=== PATIENT | male | born 1980 | race Caucasian/White ===

== ENCOUNTER 2023-10-26 14:59 | Inpatient (IN) | payer SELFPAY ==
[~2023-10-26 14:59] MED LIST: Iopamidol-370 76% 500 ML MDV (1 ML CHARGE) ONE
[2023-10-26 15:16] LABS: #Basophils 0.06 10x3/uL (0.0-0.2); %Basophils 0.6 % (0.0-1.0); %Eosinophils 1.9 % (0.0-10.0); %Lymphocytes 21.9 % (21.0-51.0); %Monocytes 6.6 % (0.0-10.0); %Neutrophils 68.7 % (42.0-75.0); Hematocrit 43.7 % (42.0-52.0); Hemoglobin 15.1 g/dL (14.0-18.0); Mean Corpuscular HGB CONC 34.6 g/dL (32.0-36.0); Mean Corpuscular Volume 89.7 fL (78.0-98.0); Platelet Count 234 10x3/uL (130-400); RBC Distribution Width 12.4 % (11.5-14.5); Red Blood Cell (RBC) Count 4.87 mill/uL (4.70-6.10)
[2023-10-26 15:30] LABS: Prothrombin Time 12.5 sec (12.0-14.7)
[2023-10-26 15:31] LABS: PTT 28.5 sec (22.9-36.1)
[2023-10-26 15:33] LABS: ALT (SGPT) 20 U/L (8-55); AST (SGOT) 12 U/L (5-34); Albumin 3.9 g/dL (3.5-5.0); Alkaline Phosphatase 171 U/L (40-110); Anion Gap 13 mmol/L (10-20); BUN (Urea Nitrogen) 12 mg/dL (8.9-20.6); Bilirubin, Total 0.2 mg/dL (0.2-1.2); CK (CPK) 64 U/L (30-200); Calc. Creatinine Clearance 0 mL/min (70-130); Calcium 9.5 mg/dL (7.8-10.44); Carbon Dioxide 26 mmol/L (22-29); Chloride 99 mmol/L (98-107); Estimated GFR 95; Globulin 3.4 g/dL (2.4-3.5); Potassium 3.5 mmol/L (3.5-5.1); Protein, Total 7.3 g/dL (6.0-8.3); Sodium 134 mmol/L (136-145)
[2023-10-26 15:35] LABS: INR-International Normal Ratio 0.9
[2023-10-26 15:37] LABS: Troponin I 0.095 ng/mL (< 0.028)
[2023-10-26 15:42] LABS: Critical Call Chemistry NUR.CGM1 AT 1542; Glucose 411 mg/dL (70-105)
[2023-10-26] MEDS ORDERED: Insulin Regular 300 UNITS/3 ML VIAL ONE (15:43)
[2023-10-26] MEDS ORDERED: hydrALAZINE 20 MG/ML VIAL ONE (15:45)
[2023-10-26 15:58] LABS: Bacteria/HPF None Seen HPF (None Seen); Bilirubin Negative (Negative); Blood, Urine Trace (Negative); CAUTI Indications for Culture Pelvic or flank pain; Clarity Clear (Clear); Glucose, Urine (Dipstick) Greater than 1000 mg/dL (Negative); Ketone, Urine Negative (Negative); Leukocyte Negative Leu/uL (Negative); Nitrite Negative (Negative); Protein, Urine (Dipstick) 20 mg/dL (Neg-Trace); RBC/HPF 0-3 HPF (0-3); Specific Gravity, Urine 1.042 (1.002-1.036); Squamous Epithelial None Seen HPF (0-3); Urobilinogen Normal mg/dL (Less than 2); WBC/HPF 21-50 HPF (0-3)
[2023-10-26 16:01] LABS: Urine Culture Reflex Yes Yes
[2023-10-26] MEDS ORDERED: HYDROcodone/Acetaminophen 5/325 mg Tablet PO PRN (16:26)
[2023-10-26] MEDS ORDERED: Bisacodyl 10 MG SUPP PR PRN (16:26)
[2023-10-26] MEDS ORDERED: Ondansetron PF 4 MG/2 ML Vial IVP PRN (16:26)
[2023-10-26] MEDS ORDERED: Labetalol HCl 100 MG/20 ML VIAL SLOW IVP PRN (16:28)
[2023-10-26] MEDS ORDERED: hydrALAZINE 20 MG/ML VIAL SLOW IVP PRN (16:28)
[2023-10-26] MEDS ORDERED: Dextrose 5% in Water 1,000 ML IV PRN (16:29)
[2023-10-26] MEDS ORDERED: Dextrose 50% Abboject 50 ML SYRINGE SLOW IVP PRN (16:29)
[2023-10-26] MEDS ORDERED: Glucagon 1 MG/ML KIT IM PRN (16:29)
[2023-10-26] MEDS: HumaLOG 300 UNITS/3 ML VIAL SC PRN (18:48)
[2023-10-26] MEDS: Sodium Chloride 0.9% 1,000 ML IV SCH (18:49)
[2023-10-26 18:53] LABS: Troponin I 0.088 ng/mL (< 0.028)
[2023-10-26 19:00] VITALS: BMI 36.3
[2023-10-26] MEDS: Atorvastatin Calcium 40 MG TAB PO SCH (20:15)
[2023-10-26] MEDS: Insulin Glargine 30 UNITS/0.3 ML VIAL SC SCH (20:15)
[2023-10-26] MEDS: Famotidine 20 MG TAB PO SCH (20:15)
[2023-10-26 21:33] LABS: Troponin I 0.079 ng/mL (< 0.028)
[2023-10-27 04:56] LABS: #Basophils 0.06 10x3/uL (0.0-0.2); %Basophils 0.6 % (0.0-1.0); %Eosinophils 2.9 % (0.0-10.0); %Lymphocytes 20.3 % (21.0-51.0); %Monocytes 7.8 % (0.0-10.0); %Neutrophils 68.1 % (42.0-75.0); Hematocrit 41.8 % (42.0-52.0); Hemoglobin 14.3 g/dL (14.0-18.0); Mean Corpuscular HGB CONC 34.2 g/dL (32.0-36.0); Mean Corpuscular Hemoglobin 31.6 pg (27.0-31.0); Mean Corpuscular Volume 92.3 fL (78.0-98.0); Mean Platelet Volume 10.9 fL (7.4-10.4); Platelet Count 227 10x3/uL (130-400); RBC Distribution Width 12.9 % (11.5-14.5); Red Blood Cell (RBC) Count 4.53 mill/uL (4.70-6.10)
[2023-10-27 05:18] LABS: Hemoglobin A1c 13.6 % (4.0-6.0)
[2023-10-27 05:28] LABS: Anion Gap 14 mmol/L (10-20); Carbon Dioxide 23 mmol/L (22-29); Chloride 102 mmol/L (98-107); Potassium 3.8 mmol/L (3.5-5.1); Sodium 135 mmol/L (136-145)
[2023-10-27 05:29] LABS: BUN (Urea Nitrogen) 10 mg/dL (8.9-20.6); Calc. Creatinine Clearance 171 mL/min (70-130); Calcium 8.9 mg/dL (7.8-10.44); Cardiac Risk 5.6 (Less than 4.5); Cholesterol 239 mg/dl (< 200 Desired); Estimated GFR 113; Glucose 281 mg/dL (70-105); HDL Cholesterol 43 mg/dL (>60 Neg Risk); LDL Cholesterol, Calculated 156 mg/dL; Triglycerides 199 mg/dL (Less than 150)
[2023-10-27] MEDS ORDERED: Aspirin 81 mg Enteric Coated Tablet PO SCH (09:00)
[2023-10-27] MEDS ORDERED: INSULIN ASPART PROT SQ SCH (09:00)
[2023-10-27] MEDS ORDERED: [UNRECOGNIZED DRUG - OTHER] SQ SCH (09:00)
[2023-10-27] MEDS ORDERED: INSULN ASP SQ SCH (09:00)
[2023-10-27] MEDS: Verapamil 120 MG TAB PO SCH (12:16)
[2023-10-27] MEDS: Clopidogrel Bisulfate 75 MG TAB PO SCH (12:16)
[2023-10-27] MEDS: Aspirin 81 mg Enteric Coated Tablet PO SCH (12:16)
[2023-10-27] MEDS: Amlodipine 10 MG TAB PO SCH (12:16)
[2023-10-27] MEDS: HumuLIN 70/30 100 Unit/ml 10 ml Vial SC SCH (12:28)
[2023-10-27] MEDS: Acetaminophen 325 MG TAB PO PRN (19:09)
[2023-10-27] MEDS: Atorvastatin Calcium 40 MG TAB PO SCH (20:20)
[2023-10-27] MEDS ORDERED: Non-Formulary Item 1 EACH (Atorvastatin Calcium [Lipitor] 80 MG Tablet) PO SCH (21:00)
[2023-10-28 04:34] LABS: #Basophils 0.04 10x3/uL (0.0-0.2); %Basophils 0.4 % (0.0-1.0); %Eosinophils 3.9 % (0.0-10.0); %Lymphocytes 18.6 % (21.0-51.0); %Monocytes 8.3 % (0.0-10.0); %Neutrophils 68.6 % (42.0-75.0); Hematocrit 43.8 % (42.0-52.0); Hemoglobin 14.8 g/dL (14.0-18.0); Mean Corpuscular HGB CONC 33.8 g/dL (32.0-36.0); Mean Corpuscular Hemoglobin 30.5 pg (27.0-31.0); Mean Corpuscular Volume 90.1 fL (78.0-98.0); Mean Platelet Volume 11.3 fL (7.4-10.4); Platelet Count 258 10x3/uL (130-400); RBC Distribution Width 12.7 % (11.5-14.5); Red Blood Cell (RBC) Count 4.86 mill/uL (4.70-6.10)
[2023-10-28 05:04] LABS: Anion Gap 14 mmol/L (10-20); BUN (Urea Nitrogen) 11 mg/dL (8.9-20.6); Calc. Creatinine Clearance 182 mL/min (70-130); Calcium 9.1 mg/dL (7.8-10.44); Carbon Dioxide 24 mmol/L (22-29); Chloride 101 mmol/L (98-107); Estimated GFR 115; Glucose 233 mg/dL (70-105); Potassium 3.6 mmol/L (3.5-5.1); Sodium 135 mmol/L (136-145)
[2023-10-28] MEDS: HumuLIN 70/30 100 Unit/ml 10 ml Vial SC SCH ×2 (10:59→12:03)
[2023-10-28] MEDS: Losartan 25 MG TAB PO SCH (11:01)
[2023-10-28] MEDS: cefTRIAXone\\ROCEPHIN 1 GM in Sodium Chloride 0.9% 100 ML IVPB SCH (14:41)
[2023-10-28 16:27] VITALS: TEMP 98.5
[2023-10-28 17:29] VITALS: BP 132/91
[2023-10-29] MEDS ORDERED: FLU VACC QS2023-24(6MOS UP)/PF 60 MCG/0.5 ML SYRINGE IM ONE (09:00)
== END 2023-10-28 18:04 | disposition home or self-care (01) | DRG 65 ==
LOC: ERS 14:59 → 2SE 16:02
PROVIDERS: ADMIT Family Medicine; ATTEND Hospitalist
DX: I63.9 Cerebral infarction, unspecified (principal); G81.91 Hemiplegia, unspecified affecting right dominant side; I16.1 Hypertensive emergency; I65.23 Occlusion and stenosis of bilateral carotid arteries; Z91.148 Patient's other noncompliance with medication regimen for other reason; Z90.89 Acquired absence of other organs; F10.90 Alcohol use, unspecified, uncomplicated; Z79.82 Long term (current) use of aspirin; Z79.4 Long term (current) use of insulin; Z79.899 Other long term (current) drug therapy; Z91.119 Patient's noncompliance with dietary regimen due to unspecified reason; E11.65 Type 2 diabetes mellitus with hyperglycemia
CPT/HCPCS: 36415; 36416; 70450; 70496; 70498; 70551; 71045; 80048; 80053; 80061; 81001; 82550; 83036; 84484; 85025; 85610; 85730; 87077; 87086; 87186; 93005; 96360; 96374; J0360; J0696; J1815; J3490; J7050; Q9967

== ENCOUNTER 2024-02-11 14:41 | Inpatient (IN) | payer OTHER, SELFPAY ==
[2024-02-11 15:26] LABS: #Basophils 0.05 10x3/uL (0.0-0.2); %Basophils 0.6 % (0.0-1.0); %Eosinophils 1.9 % (0.0-10.0); %Lymphocytes 23.9 % (21.0-51.0); %Monocytes 7.6 % (0.0-10.0); %Neutrophils 65.8 % (42.0-75.0); Hematocrit 44.5 % (42.0-52.0); Hemoglobin 15.2 g/dL (14.0-18.0); Mean Corpuscular HGB CONC 34.2 g/dL (32.0-36.0); Mean Corpuscular Hemoglobin 31.7 pg (27.0-31.0); Mean Corpuscular Volume 92.9 fL (78.0-98.0); Mean Platelet Volume 10.7 fL (7.4-10.4); Platelet Count 224 10x3/uL (130-400); RBC Distribution Width 12.9 % (11.5-14.5); Red Blood Cell (RBC) Count 4.79 mill/uL (4.70-6.10)
[2024-02-11 15:47] LABS: Troponin I 0.094 ng/mL (< 0.028)
[2024-02-11] MEDS ORDERED: Metoclopramide HCl 10 MG (2 mL) VIAL ONE (15:54)
[2024-02-11] MEDS ORDERED: diphenhydrAMINE 50 MG/ML VIAL ONE (15:54)
[2024-02-11 15:57] LABS: ALT (SGPT) 25 U/L (8-55); AST (SGOT) 15 U/L (5-34); Albumin 3.7 g/dL (3.5-5.0); Alkaline Phosphatase 181 U/L (40-110); Anion Gap 14 mmol/L (10-20); BUN (Urea Nitrogen) 10 mg/dL (8.9-20.6); Bilirubin, Total 0.3 mg/dL (0.2-1.2); Calc. Creatinine Clearance 0 mL/min (70-130); Calcium 9.5 mg/dL (7.8-10.44); Carbon Dioxide 27 mmol/L (22-29); Chloride 96 mmol/L (98-107); Estimated GFR 104; Glucose 451 mg/dL (70-105); Magnesium 2.1 mg/dL (1.6-2.6); Protein, Total 7.7 g/dL (6.0-8.3); Sodium 133 mmol/L (136-145)
[2024-02-11] MEDS ORDERED: Aspirin Chewable 81 MG TAB ONE (17:05)
[2024-02-11] MEDS ORDERED: hydrALAZINE 20 MG/ML VIAL ONE (17:13)
[2024-02-11 17:37] LABS: Acetaminophen Less than 10 mcg/mL (10.0-30.0); Alcohol Less than 10.0 mg/dL (Less than 10); Salicylate Less than 8.0 mg/dL (15.0-30.0)
[2024-02-11 19:08] LABS: Bilirubin Negative (Negative); Blood, Urine Trace (Negative); CAUTI Indications for Culture Acute Hematuria; Clarity Turbid (Clear); Glucose, Urine (Dipstick) Greater than 1000 mg/dL (Negative); Ketone, Urine Negative (Negative); Leukocyte 500 Leu/uL (Negative); Nitrite Negative (Negative); Protein, Urine (Dipstick) 20 mg/dL (Neg-Trace); Squamous Epithelial 0-3 HPF (0-3); Urobilinogen Normal mg/dL (Less than 2)
[2024-02-11 19:10] LABS: Amphetamine Not Detected (NotDetected); Barbiturates Screen Not Detected (NotDetected); Benzodiazepine Screen Not Detected (NotDetected); Cocaine Metabolite Screen Not Detected (NotDetected); Methadone Not Detected (NotDetected); Methamphetamine Not Detected (NotDetected); Opiate Screen Not Detected (NotDetected); Oxycodone Screen Not Detected (NotDetected); Phencyclidine (PCP) Not Detected (NotDetected); THC/Cannabinoid Screen Not Detected (NotDetected); Tricyclic Screen Not Detected (NotDetected)
[2024-02-11 19:13] LABS: Specific Gravity, Urine 1.057 (1.002-1.036); Transitional Epithelial 0-3 HPF (None Seen)
[2024-02-11 19:14] LABS: Bacteria/HPF 1+ HPF (None Seen); WBC/HPF Greater than 50 HPF (0-3)
[2024-02-11 19:15] LABS: Urine Culture Reflex Yes Yes
[2024-02-11] MEDS ORDERED: Glucagon 1 MG/ML KIT IM PRN (19:39)
[2024-02-11] MEDS ORDERED: Ondansetron PF 4 MG/2 ML Vial IVP PRN (19:39)
[2024-02-11] MEDS ORDERED: Ondansetron ODT 4 MG TAB PO PRN (19:39)
[2024-02-11] MEDS ORDERED: Dextrose 50% Abboject 50 ML SYRINGE SLOW IVP PRN (19:39)
[2024-02-11] MEDS ORDERED: Dextrose 5% in Water 1,000 ML IV PRN (19:39)
[2024-02-11 19:40] LABS: Troponin I 0.093 ng/mL (< 0.028)
[2024-02-11] MEDS ORDERED: hydrALAZINE 20 MG/ML VIAL SLOW IVP PRN (19:43)
[2024-02-11 20:26] VITALS: BMI 35.2
[2024-02-11] MEDS: Verapamil 120 MG TAB PO SCH (20:50)
[2024-02-11] MEDS: Atorvastatin Calcium 40 MG TAB PO SCH (20:50)
[2024-02-11] MEDS: Carvedilol 6.25 MG TAB PO SCH (20:50)
[2024-02-11] MEDS: Insulin Glargine 30 UNITS/0.3 ML VIAL SC SCH (20:51)
[2024-02-11] MEDS: Heparin 5,000 UNITS/ML VIAL SC SCH (20:51)
[2024-02-11] MEDS ORDERED: Losartan 25 MG TAB PO SCH (21:00)
[2024-02-12 01:15] LABS: Troponin I 0.098 ng/mL (< 0.028)
[2024-02-12] MEDS: Losartan 25 MG TAB PO SCH ×2 (02:55→08:16)
[2024-02-12 04:12] LABS: #Basophils 0.05 10x3/uL (0.0-0.2); %Basophils 0.6 % (0.0-1.0); %Eosinophils 3.7 % (0.0-10.0); %Lymphocytes 32.2 % (21.0-51.0); %Monocytes 8.1 % (0.0-10.0); %Neutrophils 55.1 % (42.0-75.0); Hematocrit 40.9 % (42.0-52.0); Mean Corpuscular HGB CONC 34.2 g/dL (32.0-36.0); Mean Corpuscular Hemoglobin 31.2 pg (27.0-31.0); Mean Corpuscular Volume 91.1 fL (78.0-98.0); Mean Platelet Volume 10.7 fL (7.4-10.4); Platelet Count 211 10x3/uL (130-400); RBC Distribution Width 13.1 % (11.5-14.5); Red Blood Cell (RBC) Count 4.49 mill/uL (4.70-6.10)
[2024-02-12 04:47] LABS: Hemoglobin A1c 12.4 % (4.0-6.0)
[2024-02-12 05:02] LABS: Anion Gap 16 mmol/L (10-20); BUN (Urea Nitrogen) 10 mg/dL (8.9-20.6); Calc. Creatinine Clearance 173 mL/min (70-130); Calcium 8.7 mg/dL (7.8-10.44); Carbon Dioxide 25 mmol/L (22-29); Chloride 100 mmol/L (98-107); Estimated GFR 114; Glucose 260 mg/dL (70-105); Potassium 3.1 mmol/L (3.5-5.1); Sodium 138 mmol/L (136-145)
[2024-02-12] MEDS: LevoFLOXacin 750 MG TAB PO SCH (05:19)
[2024-02-12] MEDS: Insulin Lispro 100 UNIT/ML 10 ML VIAL SC PRN ×2 (05:21→20:51)
[2024-02-12] MEDS: Potassium Chloride 20 MEQ TAB PO SCH (08:16)
[2024-02-12] MEDS: Pantoprazole DR 40 MG TAB PO SCH (08:16)
[2024-02-12] MEDS: Clopidogrel Bisulfate 75 MG TAB PO SCH (08:17)
[2024-02-12] MEDS: Aspirin 81 mg Enteric Coated Tablet PO SCH (08:17)
[2024-02-12 17:01] LABS: PTT 32.7 sec (22.9-36.1); Prothrombin Time 13.5 sec (12.0-14.7)
[2024-02-12] MEDS: Acetaminophen 325 MG TAB PO PRN (18:26)
[2024-02-13 05:15] LABS: #Basophils 0.04 10x3/uL (0.0-0.2); %Basophils 0.5 % (0.0-1.0); %Eosinophils 4.9 % (0.0-10.0); %Lymphocytes 38.7 % (21.0-51.0); %Monocytes 8.2 % (0.0-10.0); %Neutrophils 47.5 % (42.0-75.0); Hematocrit 42.9 % (42.0-52.0); Hemoglobin 14.3 g/dL (14.0-18.0); Mean Corpuscular HGB CONC 33.3 g/dL (32.0-36.0); Mean Corpuscular Hemoglobin 31.6 pg (27.0-31.0); Mean Corpuscular Volume 94.9 fL (78.0-98.0); Mean Platelet Volume 10.8 fL (7.4-10.4); Platelet Count 209 10x3/uL (130-400); RBC Distribution Width 13.1 % (11.5-14.5); Red Blood Cell (RBC) Count 4.52 mill/uL (4.70-6.10)
[2024-02-13 05:45] LABS: Anion Gap 11 mmol/L (10-20); BUN (Urea Nitrogen) 16 mg/dL (8.9-20.6); Calc. Creatinine Clearance 162 mL/min (70-130); Calcium 9.2 mg/dL (7.8-10.44); Carbon Dioxide 26 mmol/L (22-29); Cardiac Risk 6.4 (Less than 4.5); Chloride 105 mmol/L (98-107); Cholesterol 232 mg/dl (< 200 Desired); Estimated GFR 112; Glucose 247 mg/dL (70-105); HDL Cholesterol 36 mg/dL (>60 Neg Risk); LDL Cholesterol, Calculated 145 mg/dL; Potassium 3.9 mmol/L (3.5-5.1); Sodium 138 mmol/L (136-145); Triglycerides 253 mg/dL (Less than 150)
[2024-02-13] MEDS ORDERED: Amlodipine 10 MG TAB PO SCH (09:00)
[2024-02-13] MEDS: Losartan 25 MG TAB PO SCH (09:24)
[2024-02-13] MEDS: NIFEdipine XL 60 MG ER.TAB PO SCH (09:24)
[2024-02-13] MEDS: traMADol HCl 50 MG TAB PO SCH (10:47)
[2024-02-13 12:04] VITALS: BP 129/84; TEMP 99.3
[2024-02-14 13:29] LABS: Protein C Activity 159 % (78-152)
[2024-02-14 14:41] LABS: HEX PHOS LA Tube 2 40.1 SEC; Hexagonal Phospholipid Neut 6.9 SEC (0-8.0)
[2024-02-14 14:52] LABS: D-Dimer Test Less than 0.27 mcg/mL (0.27-0.43)
[2024-02-15 15:18] LABS: Cardiolipin IgA Ab 4.1 APL-U/mL (<14 Negative); Cardiolipin IgG Ab 4.3 GPL-U/mL (<10 Negative); Cardiolipin IgM Ab Less than 0.9 MPL-U/mL (<10 Negative); EliA APS New Method **** NEW METHOD ****
[2024-02-22 13:41] LABS: Activated Protein C Resistance 2.7 ratio (.)
== END 2024-02-13 14:01 | disposition home or self-care (01) | DRG 65 ==
LOC: ERS 14:41 → 2SW 17:47 → OBSVTOIN 02-13 11:02
PROVIDERS: ADMIT Internal Medicine; ATTEND Internal Medicine
DX: I63.9 Cerebral infarction, unspecified (principal); F33.9 Major depressive disorder, recurrent, unspecified; I16.1 Hypertensive emergency; N39.0 Urinary tract infection, site not specified; I16.0 Hypertensive urgency; I10 Essential (primary) hypertension; E11.65 Type 2 diabetes mellitus with hyperglycemia; E78.5 Hyperlipidemia, unspecified; Z79.82 Long term (current) use of aspirin; Z79.899 Other long term (current) drug therapy; Z79.4 Long term (current) use of insulin; Z90.89 Acquired absence of other organs; Z91.148 Patient's other noncompliance with medication regimen for other reason
CPT/HCPCS: 36415; 36416; 70450; 71045; 71275; 80048; 80053; 80061; 80306; 80307; 81001; 83036; 83090; 83735; 84443; 84484; 85025; 85300; 85303; 85305; 85307; 85598; 85610; 85730; 86147; 87077; 87086; 87186; 93005; 96372; 96374; 96375; G0378; J0360; J1200; J1644; J1815; J2765; Q9967